=== PATIENT | female | born 1990 | race Caucasian/White ===

== ENCOUNTER 2018-01-29 08:56 | Day surgery (SDC) | payer MEDICAID ==
[2018-01-26 16:37] LABS: BASOPHILS % (AUTO) 0.3 % (0-1); EOSINOPHILS # (AUTO) 0.5 X10'3 (0-0.9); EOSINOPHILS % (AUTO) 6.2 % (0-6); LYMPHOCYTES # (AUTO) 1.8 X10'3 (1.1-4.8); LYMPHOCYTES % (AUTO) 24.3 % (21-51); MEAN CORPUSCULAR HEMOGLOBIN 28.5 PG (27.0-31.0); MEAN CORPUSCULAR HGB CONC 34.3 % (33.0-36.5); MEAN CORPUSCULAR VOLUME 82.9 FL (78-98); MONOCYTES # (AUTO) 0.6 X10'3 (0-0.9); NEUTROPHILS # (AUTO) 4.4 X10'3 (1.8-7.7); NEUTROPHILS % (AUTO) 61.2 % (42-75); PRE OP HEMATOCRIT 39.6 % (35.0-45.0); PRE OP HEMOGLOBIN 13.6 g/dL (12.0-16.0); PRE OP PLATELET COUNT 310 X10'3 (140-440); RED BLOOD COUNT 4.77 X10'6 (4.20-5.60)
[2018-01-26 16:49] LABS: HCG SERUM QL NEGATIVE
[2018-01-26 16:52] LABS: ALBUMIN 3.7 G/DL (3.4-5.0); ALKALINE PHOSPHATASE 81 IU/L (46-116); BLOOD UREA NITROGEN 12 MG/DL (7-18); BUN/CREATININE RATIO 16.9 (6.6-38.0); CALCIUM 8.8 MG/DL (8.5-10.1); CHLORIDE 103 MMOL/L (99-107); CREATININE 0.71 MG/DL (0.40-0.90); PRE OP ALT 25 U/L (30-65); PRE OP ANION GAP 8 (8-16); PRE OP AST 14 U/L (10-37); PRE OP BILIRUB, TOTAL 0.4 MG/DL (0.0-1.0); PRE OP GLUCOSE 86 MG/DL (70-104); PRE OP POTASSIUM 3.9 MMOL/L (3.4-5.1); PRE OP SODIUM 139 MMOL/L (135-145); TOTAL CARBON DIOXIDE 27.8 MMOL/L (24-32); TOTAL PROTEIN 7.3 G/DL (6.4-8.2); eGFR > 90 ML/MIN
[~2018-01-29] VITALS: Ht 172.7 cm; Wt 87.5 kg
[2018-01-29] VITALS (7 sets, daily range): BP systolic 104–119; BP diastolic 61–79
[~2018-01-29 08:56] MED LIST: NO HOME MEDS; famotidine 20mg tablet PO ONE; ringers solution, lacted 1,000 ML IV SCH
[2018-01-29] MEDS ORDERED: LIDOcaine 1% (10mg/ml) 2ml vial ONE (09:33)
[2018-01-29] MEDS ORDERED: BUPIVAcaine 0.5% inj/PF 30 ml vial ONE (09:54)
[2018-01-29] MEDS ORDERED: ringers solution, lacted 1,000 ML IV SCH (10:23)
[2018-01-29] MEDS ORDERED: labetalol 20mg/4ml (5mg/ml) syringe IV PRN (10:25)
[2018-01-29] MEDS ORDERED: ondansetron/PF 4mg/2ml inj IV PRN (10:25)
[2018-01-29] MEDS ORDERED: morphine 4 MG/ML inj SYRINge IV PRN ×2 (10:25)
[2018-01-29] MEDS ORDERED: hydrALAZINE 20mg/ml inj. IV PRN (10:25)
[2018-01-29] MEDS ORDERED: fentaNYL/PF 50MCG/1 ML 2ML syringe IV PRN ×2 (10:25)
[2018-01-29] MEDS ORDERED: midazolam 2 mg/2 ml injection ONE (10:53)
[2018-01-29] MEDS ORDERED: fentaNYL/PF 50MCG/1 ML 2ML syringe ONE (10:53)
[2018-01-29] MEDS ORDERED: LIDOcaine 2% (20mg/ml) 5ml vial ONE (10:55)
[2018-01-29] MEDS ORDERED: propofol inj 20 ML IV ONE (10:55)
[2018-01-29] MEDS ORDERED: oxyCODONE/APAP 5-325mg tablet PO PRN ×2 (12:00)
== END 2018-01-29 12:39 | disposition home or self-care (01) ==
LOC: PAS 08:56
PROVIDERS: ATTEND Obstetrics & Gynecology
DX: Z30.2 Encounter for sterilization (principal); N80.0 Endometriosis of uterus; Z90.49 Acquired absence of other specified parts of digestive tract; Z98.890 Other specified postprocedural states; Z86.14 Personal history of Methicillin resistant Staphylococcus aureus infection
CPT/HCPCS: 36415; 58670; 80053; 84703; 85025; 86885; 86900; 86901; J2001; J2250; J2704; J3010; J3490; J7120; A6250

== ENCOUNTER 2024-09-21 12:05 | Emergency (ER) | payer MEDICAID ==
[~2024-09-21] VITALS: Ht 175.3 cm; Wt 82.7 kg
[~2024-09-21 12:05] MED LIST changes: +PROM25TA14 PO; -famotidine 20mg tablet PO ONE; -ringers solution, lacted 1,000 ML IV SCH
[2024-09-21] MEDS: normal saline 1000ml 1,000 ML IV ONE (14:42)
[2024-09-21] MEDS: ondansetron/PF 4mg/2ml inj IV ONE (14:42)
[2024-09-21] MEDS: haloperidol lactate 5mg/ml inj IM ONE (15:52)
[2024-09-21] MEDS ORDERED: PROM25SU51 RC (16:46)
[2024-09-21 17:14] VITALS: BP 132/72; PULSE 82; RESP 18; TEMP 98.5; O2SAT 98
== END 2024-09-21 17:17 | disposition home or self-care (01) ==
LOC: ER 12:05
DX: R11.15 Cyclical vomiting syndrome unrelated to migraine (principal); F32.A Depression, unspecified; Z88.5 Allergy status to narcotic agent; Z90.49 Acquired absence of other specified parts of digestive tract
CPT/HCPCS: 96361; 96372; 96374; 99284; J1630; J2405; J7030

== ENCOUNTER 2024-09-22 12:48 | Emergency (ER) | payer MEDICAID ==
[~2024-09-22] VITALS: Ht 175.3 cm; Wt 86.4 kg
[~2024-09-22 12:48] MED LIST changes: +PROM25SU51 RC
[2024-09-22 12:54] VITALS: TEMP 97.7
[2024-09-22] MEDS: metoclopramide 5 mg/ml inj IV ONE (14:55)
[2024-09-22] MEDS: normal saline 1000ml 1,000 ML IV ONE (14:55)
[2024-09-22 15:10] LABS: BASOPHILS % (AUTO) 0.2 % (0-1); EOSINOPHILS # (AUTO) 0.1 X10'3 (0-0.9); EOSINOPHILS % (AUTO) 0.7 % (0-6); HEMATOCRIT 44.8 % (35.0-45.0); HEMOGLOBIN 15.5 g/dl (12.0-16.0); LYMPHOCYTES # (AUTO) 1.1 X10'3 (1.1-4.8); LYMPHOCYTES % (AUTO) 10.5 % (21-51); MEAN CORPUSCULAR HEMOGLOBIN 30.8 PG (27.0-31.0); MEAN CORPUSCULAR HGB CONC 34.5 g/dL (33.0-36.5); MEAN CORPUSCULAR VOLUME 89.2 FL (78-98); MEAN PLATELET VOLUME 9.5 FL (7.4-10.4); MONOCYTES # (AUTO) 0.6 X10'3 (0-0.9); MONOCYTES % (AUTO) 6.4 % (2-12); NEUTROPHILS # (AUTO) 8.3 X10'3 (1.8-7.7); NEUTROPHILS % (AUTO) 82.2 % (42-75); PLATELET COUNT 269 X10'3 (140-440); RED BLOOD COUNT 5.02 X10'6 (4.20-5.60); RED CELL DISTRIBUTION WIDTH 13.5 % (11.5-14.5)
[2024-09-22] MEDS ORDERED: famotidine/PF IV inj 40 MG in normal saline 100ml IV soln 100 ML IV ONE (15:10)
[2024-09-22] MEDS: acetaminophen 1,000mg/100ml IV 100 ML IV ONE (15:31)
[2024-09-22] MEDS: famotidine/PF 10 mg/ml inj IV ONE (15:32)
[2024-09-22 15:47] LABS: ALANINE AMINOTRANSFERASE 28 U/L (12-78); ALBUMIN 4.2 G/DL (3.4-5.0); ALBUMIN/GLOBULIN RATIO 1.2 (1.1-1.5); ANION GAP 17 (8-16); ASPARTATE AMINO TRANSFERASE 21 U/L (10-37); BILIRUBIN,TOTAL 1.1 MG/DL (0.1-1.0); BLOOD UREA NITROGEN 8 MG/DL (7-18); BUN/CREATININE RATIO 12.5 (10.0-20.0); CALCIUM 8.7 MG/DL (8.5-10.1); CHLORIDE 102 MMOL/L (99-107); CREATININE 0.64 MG/DL (0.40-0.90); GLUCOSE 68 MG/DL (70-104); LIPASE 26 U/L (16-77); POTASSIUM 3.2 MMOL/L (3.5-5.1); SODIUM 140 MMOL/L (135-145); TOTAL CARBON DIOXIDE 20.9 MMOL/L (24-32); TOTAL PROTEIN 7.7 G/DL (6.4-8.2); eCRCL 128 ML/MIN; eGFR > 90 ML/MIN
[2024-09-22 15:52] LABS: ALKALINE PHOSPHATASE 67 IU/L (46-116); BETA HCG,QUANTITATIVE < 1.0 mIU/ml
[2024-09-22] MEDS: scopolamine 1MG/72H patch 1 PATCH PATCH.TD.3 TD ONE (17:23)
[2024-09-22 17:28] VITALS: BP 126/80; PULSE 67; RESP 16; O2SAT 95
== END 2024-09-22 17:31 | disposition home or self-care (01) ==
LOC: ER 12:49
DX: R11.15 Cyclical vomiting syndrome unrelated to migraine (principal); Z88.5 Allergy status to narcotic agent; Z90.49 Acquired absence of other specified parts of digestive tract; Z79.899 Other long term (current) drug therapy
CPT/HCPCS: 36415; 80053; 83690; 84702; 85025; 96361; 96365; 96375; 99284; J0131; J2765; J3490; J7030

== ENCOUNTER 2025-04-29 19:54 | Emergency (ER) | payer MEDICAID, OTHER ==
[~2025-04-29] VITALS: Ht 175.3 cm; Wt 75.2 kg
[~2025-04-29 19:54] MED LIST changes: -PROM25TA14 PO
[2025-04-29 19:57] VITALS: BP 105/60; PULSE 85; RESP 16; O2SAT 99
--- NOTE | 2025-04-29 20:39 | Physician Documentation ---
History of Present Illness ~ Chief Complaint: Vomiting Stated Complaint: VOMITING Time Seen by MD: 20:24 Primary Medical Doctor: Dr. Stephens HPI Patient is seen today with complaints of nausea and vomiting for two days. Patient states this has happened previously after her Zepbound injection and states the last time this happened she was vomiting for 12 days. Patient states she currently just wants some IV fluids and IV antiemetics so she can go home asleep. Patient denies any chest pain or shortness of breath or diarrhea. She has no other concern or complaint at this time. Denies any fevers or chills. Medication Reconciliation Allergies: Coded Allergies: hydromorphone (Verified Allergy, Intermediate, HIVES, 04/29/25) hydrocodone bit (Verified Allergy, Unknown, 04/29/25) hydromorphone HCl (Verified Allergy, Unknown, 04/29/25) Scheduled Promethazine Hcl (Promethazine Hcl), 1-2 SUPP RC Q6H Miscellaneous Medications Home Med List (No Home Medications), (Reported) Past Medical History Past Medical History: Depression Past Surgical History: appendectomy, cholecystectomy, other Other Past Surgical History: Fibroid surgery Alcohol Use: None Drug Use: none Lives with: Spouse Lives In: Home Review of Systems Constitutional: Denies: chills, fever, weakness Eyes: Denies: pain, blurred vision ENT: Denies: ear pain, nose pain, throat pain, mouth pain Respiratory: Denies: cough, shortness of breath Cardiovascular: Denies: chest pain, palpitations Gastrointestinal: Denies: abdominal pain, nausea, vomiting Genitourinary: Denies: burning, dysuria Female Genitalia: Denies: vaginal discharge, pelvic pain Neurological: Denies: headache, dizziness Musculoskeletal: Denies: pain, swelling Integumentary: Denies: rash, lesions Allergic/Immunologic: Denies: hives, itching Hematologic/Lymphatic: Denies: no symptoms reported Psychiatric: Denies: depression, anxiety Physical Exam Vital Signs: Temperature: 97.1, Source: Temporal, Heart Rate: 85, Respiratory Rate: 16, BP: 105/60, Pulse Oximetry: 99, Weight: 75.200 Oxygen Flow Rate: 0 Physical Exam General: Awake and Alert, no acute distress. HEENT: Conjunctiva pink, Sclera clear, Mucus Membranes moist. Neck: Supple without masses and tenderness. Resp: Unlabored. Lungs clear to auscultation bilaterally. Heart: Regular Rate and rhythm, normal S1 and S2 without murmur, rub or gallop. Abdomen: Soft and non tender no organomegaly Extremities: No cyanosis,clubbing or edema. Skin: Warm and Dry. Progress Results/Orders Results/Orders Vital Signs 04/29/25 19:57 Temp 97.1 Pulse 85 Resp 16 B/P (MAP) 105/60 Pulse Ox 99 O2 Flow Rate 0 Medical Decision Making Findings Patient is seen today with complaints of nausea and vomiting for two days. Patient states this has happened previously after her Zepbound injection and states the last time this happened she was vomiting for 12 days. Patient states she currently just wants some IV fluids and IV antiemetics so she can go home asleep. Patient denies any chest pain or shortness of breath or diarrhea. She has no other concern or complaint at this time. Denies any fevers or chills. Patient was given 2 L of IV fluids and 10 mg of Compazine IV as well as Zyprexa 10 mg IM. Patient symptoms did improve significantly and patient was discharged home and will return to ED with any worsening, concerning or changing symptoms. Patient will follow up with primary care in 2-3 days if no better as needed sooner. I highly recommended patient discontinue the Zepbound. Departure Disposition: HOME / SELF CARE / HOMELESS Impression: Primary Impression: Vomiting Qualified Codes: R11.2 - Nausea with vomiting, unspecified Condition: Improved Discharge Instructions: Nausea and Vomiting, Adult Additional Instructions: Patient was given 2 L of IV fluids and 10 mg of Compazine IV as well as Zyprexa 10 mg IM. Patient symptoms did improve significantly and patient was discharged home and will return to ED with any worsening, concerning or changing symptoms. Patient will follow up with primary care in 2-3 days if no better as needed sooner. I highly recommended patient discontinue the Zepbound. Referrals: NO PRIMARY CARE PROVIDER (PCP) Prescriptions ONDANSETRON ODT 4mg tablet (ONDANSETRON ODT) 4 Mg Tab.rapdis 8 MG PO BID for 7 Days, #28 TAB Prov: GREGORY ORTA PAC 04/29/25 Signature Scribe Signature: No scribe Attestation: No scribe GREGORY ORTA PAC Apr 29, 2025 20:39
[2025-04-29] MEDS ORDERED: ONDA-243 PO (20:40)
[2025-04-29] MEDS: normal saline 1000ml 1,000 ML IV STA (21:05)
[2025-04-29] MEDS: normal saline 1000ml 1,000 ML IV ONE (21:05)
[2025-04-29] MEDS: OLANZapine **IM** 10 mg inj. IM STA (21:06)
[2025-04-29 22:01] VITALS: TEMP 97.1
== END 2025-04-29 22:02 | disposition home or self-care (01) ==
LOC: ER 19:54
DX: R11.2 Nausea with vomiting, unspecified (principal); F32.A Depression, unspecified; Z90.49 Acquired absence of other specified parts of digestive tract; Z88.5 Allergy status to narcotic agent; Z79.899 Other long term (current) drug therapy
CPT/HCPCS: 96361; 96372; 96374; 99284; J0780; J3490; J7030

== ENCOUNTER 2025-05-02 20:08 | Emergency (ER) | payer OTHER ==
[~2025-05-02] VITALS: Ht 175.3 cm; Wt 73.9 kg
[~2025-05-02 20:08] MED LIST changes: +ONDA-243 PO
[2025-05-02 20:14] VITALS: BP 134/71; PULSE 69; RESP 16; TEMP 99.3; O2SAT 98
--- NOTE | 2025-05-02 20:23 | ELECTROCARDIOGRAPH REPORT ---
[facility] Test Date: 2025-05-02 Test Time: 20:21:55 Pat Name: DOROTHEA ONEILL Department: EMERGENCY ROOM Room: Gender: F Legal Collector: ELIZABETH : 1990 Requested By: KASHMIR SUTHERLAND Order Number: [id number] Reading MD: Measurements Intervals [place] Rate: 65 P: 67 MD: 143 QRS: 74 QRSD: 93 T: -41 QT: 432 QTc: 450 Interpretive Statements Sinus rhythm Low voltage, precordial leads Borderline repolarization abnormality Baseline wander in lead(s) II,aVR Please click the below link to view image of tracing.
[2025-05-02 20:27] LABS: MEAN PLATELET VOLUME 8.4 FL (7.4-10.4); RED CELL DISTRIBUTION WIDTH 12.9 % (11.5-14.5)
--- NOTE | 2025-05-02 20:37 | RADIOLOGY REPORT ---
EXAM: DI CHEST,SINGLE VIEW HISTORY: CP TECHNIQUE: 1 view of the chest COMPARISON: None FINDINGS/IMPRESSION: LUNGS: No pleural effusion, consolidation, or pneumothorax MEDIASTINUM: Unremarkable BONES: No acute osseous abnormality OTHER: None
[2025-05-02 20:50] LABS: CREATININE 0.69 MG/DL (0.40-0.90); PRO BRAIN NATRIURETIC PEPTIDE 505 PG/ML (0-125); TOTAL CARBON DIOXIDE 26.3 MMOL/L (24-32); eCRCL 118 ML/MIN; eGFR > 90 ML/MIN
== END 2025-05-02 22:01 | disposition left against medical advice (07) ==
LOC: ER 20:08
DX: R11.10 Vomiting, unspecified (principal); I49.8 Other specified cardiac arrhythmias; Z53.21 Procedure and treatment not carried out due to patient leaving prior to being seen by health care provider; Z88.5 Allergy status to narcotic agent; Z88.8 Allergy status to other drugs, medicaments and biological substances
CPT/HCPCS: 36415; 71045; 80048; 83690; 83880; 84484; 85025; 93005

== ENCOUNTER 2025-05-08 11:36 | Emergency (ER) | payer OTHER ==
[~2025-05-08] VITALS: Ht 175.3 cm; Wt 77.3 kg
[2025-05-08 11:45] VITALS: TEMP 97.8
[2025-05-08 12:15] LABS: MEAN PLATELET VOLUME 8.6 FL (7.4-10.4); RED CELL DISTRIBUTION WIDTH 12.8 % (11.5-14.5)
[2025-05-08 12:28] LABS: CREATININE 0.65 MG/DL (0.40-0.90); TOTAL CARBON DIOXIDE 27.0 MMOL/L (24-32); eCRCL 125 ML/MIN; eGFR > 90 ML/MIN
[2025-05-08] MEDS: normal saline 1000ML IV soln IVB ONE (13:38)
--- NOTE | 2025-05-08 13:46 | Physician Documentation ---
History of Present Illness ~ Chief Complaint: Abdominal Pain Stated Complaint: N/V Time Seen by MD: 12:24 OK to notify your PCP?: Yes Primary Medical Doctor: Dr. Stephens Source: patient Mode of Arrival: POV Exam Limitations: no limitations HPI 34 year old female with chief complaint nausea and vomiting that has been going on now for 10 days since she increased her dosage of Zepbound from 2.5 mg to 5 mg. She states in September when she tried to increase her dosage from 2.5 to 5 mg she reports the same thing happened back in September when she was seen here a few times and ultimately admitted to [facility] for her nausea with vomiting. She also uses marijuana but states she quit thirty days ago. History of cholecystectomy. She does have abdominal pain but states that it is more like soreness from her vomiting. She has Zofran oral Compazine as well as Compazine suppositories at home she states she did not try the Compazine suppositories because they did not help when she tried them previously but she did try oral Compazine and her Zofran and still was unable to keep any liquids down. No vomiting since she has been here at the ER. No fever, chills, chest pain, sh ortness of breath, patches, lightheadedness, diarrhea or constipation, no urinary symptoms Medication Reconciliation Allergies: Coded Allergies: hydromorphone (Verified Allergy, Intermediate, HIVES, 05/08/25) hydrocodone bit (Verified Allergy, Unknown, 05/08/25) RASH, STATES SHE NEEDS BENDRYL WITH IT hydromorphone HCl (Verified Allergy, Unknown, 05/08/25) RASH, STATES SHE NEEDS BENDRYL WITH IT Scheduled ONDANSETRON ODT 4mg tablet (Ondansetron Odt), 8 MG PO BID Promethazine Hcl (Promethazine Hcl), 1-2 SUPP RC Q6H Miscellaneous Medications Home Med List (No Home Medications), (Reported) Past Medical History Past Medical History: No Pertinent History, Depression Past Surgical History: appendectomy, cholecystectomy, other Other Past Surgical History: Fibroid surgery Alcohol Use: None Drug Use: none Lives with: Spouse Lives In: Home Review of Systems All Other Systems at this time: Reviewed and Negative Physical Exam Vital Signs: Temperature: 97.8, Heart Rate: 79, Respiratory Rate: 13, BP: 113/8 6, Pulse Oximetry: 99, Weight: 77.270 Oxygen Flow Rate: 0 Physical Exam GENERAL APPEARANCE: ALERT, WD/WN. NAD. HEENT: NCAT, PERRL, EOMI. NECK: SUPPLE, TRACHEA MIDLINE. CARDIOVASCULAR: RRR. NO M/R/G. LUNGS: CTAB. BREATHING UNLABORED EXTREMITIES: NORMAL INSPECTION. NO EDEMA. SKIN: WARM/DRY, NORMAL COLOR NEUROLOGICAL: ALERT AND ORIENTED X4, NORMAL GAIT. PSYCHIATRIC: AFFECT CONGRUENT WITH MOOD. Progress Results/Orders Results/Orders Completed Orders - JULIAN BLANCO Normal Saline 1000ml (0.9% Sodium Chlori (05/08/25 13:00) Prochlorperazine Inj (Compazine Inj) (05/08/25 13:00) Medications Received in ER Medications (Trade) Dose Ordered Sig/Erna Route PRN Reason Start Time Stop Time Status Last Admin Dose Admin (0.9% sodium chloride (NS) 1000ml IV soln) 1,000 ml ONCE ONCE IVB 05/08/25 13:00 05/08/25 13:01 DC 05/08/25 13:38 1,000 ML (Compazine inj) 10 mg ONCE ONCE IV 05/08/25 13:00 05/08/25 13:01 DC 05/08/25 13:38 10 MG Vital Signs 05/08/25 05/08/25 05/08/25 11:45 12:23 12:24 Temp 97.8 Pulse 92 79 Resp 18 13 13 B/P (MAP) 129/82 113/86 (95) Pulse Ox 98 99 O2 Flow Rate 0 Laboratory Tests Test 05/08/25 12:05 White Blood Count 10.4 Red Blood Count 5.89 H Hemoglobin 17.8 H Hematocrit 50.6 H Mean Corpuscular Volume 86.0 Mean Corpuscular Hemoglobin 30.2 Mean Corpuscular Hemoglobin Concent 35.1 Red Cell Distribution Width 12.8 Platelet Count 334 Mean Platelet Volume 8.6 Neutrophils (%) (Auto) 81.8 H Lymphocytes (%) (Auto) 9.4 L Monocytes (%) (Auto) 6.8 Eosinophils (%) (Auto) 1.7 Basophils (%) (Auto) 0.3 Neutrophils # (Auto) 8.5 H Lymphocytes # (Auto) 1.0 L Monocytes # (Auto) 0.7 Eosinophils # (Auto) 0.2 Basophils # (Auto) 0.0 CBC Comment Sodium Level 136 Potassium Level 3.4 L Chloride Level 96 L Carbon Dioxide Level 27.0 Anion Gap 13 Blood Urea Nitrogen 11 Creatinine 0.65 Estimated GFR/1.73 m2 > 90 BUN/Creatinine Ratio 16.9 Glucose Level 91 Calcium Level 9.8 Total Bilirubin 1.2 H Aspartate Amino Transf (AST/SGOT) 12 Alanine Aminotransferase (ALT/SGPT) 32 Alkaline Phosphatase 60 Total Protein 8.4 H Albumin 4.8 Globulin 3.6 Albumin/Globulin Ratio 1.3 Lipase 61 Chemistry Comments Medical Decision Making Diff Dx N/V/D:Considerations: Include: Appendicitis, Bowel obstruction, Dehydration, DKA, Diarrhea - bacterial, Diarrhea - parasitic, Diarrhea - viral, Diverticulitis, Diverticulosis, Drug toxicity, Electrolyte imbalance, Food poisoning, Gastroenteritis, GE reflux, GI bleed, Hepatitis, Hernia, Hypovolemia, Hypotension, Inflammatory BD, Impaction, Malnutrition, Pancreatitis, , PUD, Renal failure, Urolithiasis, Urinary obstruction, UTI, Other Departure Time of Disposition: 13:43 Disposition: 01 HOME / SELF CARE / HOMELESS Impression: Primary Impression: Vomiting Qualified Codes: R11.10 - Vomiting, unspecified Additional Impression: Medication side effect Condition: Stable Discharge Instructions: Vomiting, Adult Additional Instructions: YOUR POTASSIUM WHEN YOU WHERE HERE THE OTHER WAS 2.9 TODAY YOUR POTASSIUM WAS 3.4 (NORMAL IS 3.5) WHICH IS CLOSE ENOUGH TO NORMAL I CALLED IT NORMAL HOPEFULLY YOUR SYMPTOMS RESOLVE WHEN THE ZEPBOUND GETS OUT OF YOUR SYSTEM WHICH SHOULD BE ANY DAY NOW SINCE YOUR LAST INJECTION WAS 10DAYS AGO Referrals: NO PRIMARY CARE PROVIDER (PCP) Education Educated: Patient Educated regarding: diagnosis, treatment, need for follow up Signature Scribe Signature: X Attestation: JULIAN FERNÁNDEZ May 08, 2025 13:46
[2025-05-08 15:30] VITALS: BP 112/68; PULSE 64; RESP 15; O2SAT 99
== END 2025-05-08 15:32 | disposition home or self-care (01) ==
LOC: ER 11:37
DX: R11.2 Nausea with vomiting, unspecified (principal); T50.995A Adverse effect of other drugs, medicaments and biological substances, initial encounter; F12.90 Cannabis use, unspecified, uncomplicated; F32.A Depression, unspecified; Z88.5 Allergy status to narcotic agent; Z90.49 Acquired absence of other specified parts of digestive tract; Z79.899 Other long term (current) drug therapy; Y92.89 Other specified places as the place of occurrence of the external cause
CPT/HCPCS: 36415; 80053; 83690; 85025; 96361; 96374; 99283; J0780; J7030